=== PATIENT | female | born 1985 | race Hispanic/Latino ===

== ENCOUNTER → 2024-04-11 | Outpatient (CLI) | payer MEDICAID ==
[~2024-04-11] MED LIST: ESTR1PAT87 TD
[2024-04-11 10:40] LABS: % IRON SATURATION 10.7 % (22-44)
[2024-04-11 10:51] LABS: FERRITIN 51 ng/mL (15-150)
== END | disposition home or self-care (01) ==
LOC: LAB 09:28
PROVIDERS: ATTEND Internal Medicine Gastroenterology
DX: E66.01 Morbid (severe) obesity due to excess calories (principal)
CPT/HCPCS: 36415; 82607; 82728; 83540; 83550

== ENCOUNTER 2024-04-17 06:03 | Day surgery (SDC) | payer MEDICAID ==
[2024-04-17] VITALS (10 sets, daily range): BP systolic 123–164; BP diastolic 64–88; PULSE 62–84; RESP 13–20; TEMP 96.7–97.7
[~2024-04-17] VITALS: Ht 165.1 cm; Wt 157.4 kg
[2024-04-17] MEDS: 0.9%NACL 1000ML 1,000 ML IV ONE (06:43)
[2024-04-17] MEDS ORDERED: ketaMINE 50MG/ML SYRINGE 50 MG/ML DISP.SYRIN ONE (08:11)
[2024-04-17] MEDS ORDERED: LIDOCAINE PF 100MG/5ML (2%) SYRINGE 5ML ONE (08:11)
[2024-04-17] MEDS ORDERED: proPOFol 10 MG/ML 20ML VIAL IV ONE ×2 (08:11→08:28)
[2024-04-17] MEDS ORDERED: SUCCINYLCHOLINE CHLORIDE 20 MG/ML 10 ML VIAL ONE (08:18)
[2024-04-17] MEDS ORDERED: GLYCOPYRROLATE 0.2 MG/ML 5 ML VIAL ONE (08:19)
--- NOTE | 2024-04-17 09:40 | NUR ---
Full and complete discharge instructions given to Patient and Family both verbally and in writing. All questions answered. Tolerating PO fluids well. Voiced understanding to GI procedure and follow up. PIV removed with catheter tip intact. W\C to POV with Family to home.
== END 2024-04-17 09:35 | disposition home or self-care (01) ==
LOC: ENDO 06:03 → DAH 06:03 → ENDO 09:35
PROVIDERS: ATTEND Surgery
DX: R12 Heartburn (principal); K29.50 Unspecified chronic gastritis without bleeding; D72.820 Lymphocytosis (symptomatic); K21.9 Gastro-esophageal reflux disease without esophagitis; E66.01 Morbid (severe) obesity due to excess calories; K76.0 Fatty (change of) liver, not elsewhere classified; I10 Essential (primary) hypertension; M15.9 Polyosteoarthritis, unspecified; F32.A Depression, unspecified; Z68.43 Body mass index [BMI] 50.0-59.9, adult; Z79.899 Other long term (current) drug therapy
CPT/HCPCS: 84703; 36415; 43239; J0330; J7030 ×2; J2003; J2704 ×2; J3490 ×2; A4620; A4215; A4223; A7002; A4222; A4221; A4663; A4606

== ENCOUNTER → 2024-04-24 | Outpatient (CLI) | payer OTHER ==
--- NOTE | 2024-04-24 12:01 | NUR ---
BARIATRIC FOLLOW UP NOTE VISIT 2 OF 6 Wt: 240 LBS DOS: 04/24/24 present during visit. Communicated in [place]. Upon follow up visit, pt presents with a 9 lb wt loss. Pt reported she was happy towards wt loss, no MVI QD, no protein supplements, decreased soda, no exercise, portion control, low appetite. RD conducted 24 hr food recall. Breakfast: skipped Lunch: skipped Dinner: burger + diet coke RD reviewed simple CHO and complex CHO intake, encouraged Pt to not skip meals, discussed ways to gain appetite back, encouraged pt to decrease soft drink (even sugar free) consumption secondary to carbonation and caffeine, pt verbalized understanding. RD and pt established goals for next month: -MVI QD -protein supplement QD -walk 1 x per week for 15 mins Thank you for this visit Addendum: 04/24/24 at [address] Amended: Links added.
== END | disposition home or self-care (01) ==
LOC: DTH 10:54
PROVIDERS: ATTEND Surgery
DX: E66.01 Morbid (severe) obesity due to excess calories (principal); G47.33 Obstructive sleep apnea (adult) (pediatric); I10 Essential (primary) hypertension; M19.91 Primary osteoarthritis, unspecified site; E78.00 Pure hypercholesterolemia, unspecified; K76.0 Fatty (change of) liver, not elsewhere classified; K21.9 Gastro-esophageal reflux disease without esophagitis
CPT/HCPCS: 97803

== ENCOUNTER → 2024-05-21 | Outpatient (CLI) | payer OTHER ==
--- NOTE | 2024-05-21 15:08 | NUR ---
BARIATRIC FOLLOW UP NOTE VISIT 3 OF 6 Wt: 235 LBS DOS: 05/21/24 Communicated in [place]ic Upon follow up visit, pt presents with a 15 lb wt gain. Pt reported she felt wt gain, no exercise, on prescribed vit. D, cut down on soda, has been eating and then drinking fluids separately, has had a lot of celebrations. RD conducted 24 hr food recall. Breakfast: egg + veggies+ corn tortilla Lunch: yogurt + water Dinner: enchiladas 3 + water S: rice krispy RD reviewed importance of protein, reviewed importance of calcium and protein, reviewed foods with calcium and vit. D, encouraged pt to decrease soft drink (even sugar free) consumption secondary to carbonation and caffeine, pt verbalized understanding. RD and pt established goals for next month: -walk 2x per week 10 min -protein shake daily -increase veggie intake Thank you for this visit Addendum: 05/21/24 at [address] Amended: Links added.
== END | disposition home or self-care (01) ==
LOC: DTH 14:02
PROVIDERS: ATTEND Surgery
DX: E66.01 Morbid (severe) obesity due to excess calories (principal); G47.33 Obstructive sleep apnea (adult) (pediatric); I10 Essential (primary) hypertension; M19.91 Primary osteoarthritis, unspecified site; E78.00 Pure hypercholesterolemia, unspecified; K76.0 Fatty (change of) liver, not elsewhere classified; K21.9 Gastro-esophageal reflux disease without esophagitis
CPT/HCPCS: 97803

== ENCOUNTER → 2024-06-26 | Outpatient (CLI) | payer OTHER ==
[~2024-06-26] MED LIST changes: +NORG1TAB75 PO; +VITAD50000 PO
--- NOTE | 2024-06-26 13:00 | NUR ---
FOLLOW PRE-OP/POST-OP DIETARY RECOMMENDATIONS BARIATRIC PRE-OP VISIT VISIT 4 OF 6 Wt: 247 lb DOS: 06/26/24 present during visit. Communicated in [place]. Upon follow up visit, pt presented with a 8 lb wt loss. Pt reported taking vit. D prescription, on a FLD, walking 30 min for 3x per week, MVI QD, to have procedure the 29th of this month, to have the sleeve. RD reviewed educational material for pre-op and post-op diet recommendations with detailed phases of diet post-op. Pt was informed of importance of lifelong vitamin/mineral supplementation, choosing protein first during meals (pt was educated on higher protein requirements), choosing low calorie, sugar free, carbonated free and caffeine beverages. RD also informed pt on lifelong commitment to exercise and dietary recommendations for optimal success post surgery. RD encouraged getting blood work every 3 to 6 months, including B-vitamins, Pt verbalized understanding. RD informed Pt on moving around after procedure to prevent DVT, Pt verbalized understanding. Pt was encouraged to contact RD as questions arise and to attend support groups. RD provided protein supplement recommendations along with Bariatric Vitamin recommendations via graphics to patient. Pt with several questions, all of which were answered. Fair compliance suspected. Pt will benefit from outpatient bariatric dietitian follow up post procedure. Pt to follow up with PCP for labs. Thank you for this visit. Addendum: 06/26/24 at [address] Amended: Links added.
== END | disposition home or self-care (01) ==
LOC: DTH 11:43
PROVIDERS: ATTEND Surgery
DX: E66.01 Morbid (severe) obesity due to excess calories (principal); G47.33 Obstructive sleep apnea (adult) (pediatric); I10 Essential (primary) hypertension; M19.91 Primary osteoarthritis, unspecified site; K76.0 Fatty (change of) liver, not elsewhere classified; K21.9 Gastro-esophageal reflux disease without esophagitis; E78.00 Pure hypercholesterolemia, unspecified; Z68.43 Body mass index [BMI] 50.0-59.9, adult; Z71.3 Dietary counseling and surveillance
CPT/HCPCS: 97803